=== PATIENT | male | born 1940 | race Caucasian/White ===

== ENCOUNTER 2022-12-31 12:46 | Emergency (ER) | payer MEDICARE, BC ==
[2022-12-31 13:53] LABS: BASOPHILS PERCENT AUTO 0.5 % (0.3-3.8); EOSINOPHILS ABSOLUTE AUTO 0.2 x10-3/uL (0.0-0.6); EOSINOPHILS PERCENT AUTO 2.5 % (0.1-6.8); HEMATOCRIT 43.9 % (38.3-50.1); HEMOGLOBIN 15.7 g/dL (12.9-17.7); LYMPHOCYTES ABSOLUTE AUTO 1.3 x10-3/uL (0.5-4.5); LYMPHOCYTES PERCENT AUTO 16.8 % (15.8-45.3); MEAN CORPUSCULAR HEMOGLOBIN 33.8 pg (27.0-33.3); MEAN CORPUSCULAR HGB CONC 35.8 g/dL (28.7-35.3); MEAN CORPUSCULAR VOLUME 94.4 fL (80.8-98.7); MEAN PLATELET VOLUME 8.7 fL (6.7-11.0); MONOCYTES ABSOLUTE AUTO 0.6 x10-3/uL (0.0-1.2); MONOCYTES PERCENT AUTO 7.7 % (5.5-15.2); NEUTROPHILS ABSOLUTE AUTO 5.5 x10-3/uL (1.7-6.9); NEUTROPHILS PERCENT AUTO 72.5 % (40.3-71.8); PLATELET COUNT,PLT 230 x10(3)uL (117-477); RED BLOOD CELL COUNT 4.65 x10(6)uL (3.90-5.90); RED CELL DISTRIBUTION WIDTH 14.6 % (12.4-15.0); WHITE BLOOD CELL COUNT,WBC 7.6 x10-3/uL (3.2-10.1)
[2022-12-31 13:55] LABS: BLOOD UREA NITROGEN,BUN 25 mg/dL (7-18); BUN/CREATININE RATIO 19.2 (9-20); CALCIUM 8.9 mg/dL (8.6-10.2); CARBON DIOXIDE,CO2 31 mmol/L (21-32); CHLORIDE,CL 101 mmol/L (100-110); CREATININE 1.3 mg/dL (0.70-1.30); ESTIMATED GFR 55 mL/min (>60); GLUCOSE RANDOM 129 mg/dL (80-116); POTASSIUM,K 3.6 mmol/L (3.5-5.3); SODIUM,NA 140 mmol/L (135-145)
[2022-12-31 14:00] LABS: A/G RATIO 0.8; ALANINE AMINOTRANSFERASE,ALT 24 U/L (12-36); ALBUMIN 3.7 g/dL (3.2-4.6); ALKALINE PHOSPHATASE 62 IU/L (56-112); ASPARTATE AMNIOTRANSFERASE,AST 21 IU/L (5-25); BILIRUBIN TOTAL 0.6 mg/dL (0.1-1.3); PROTEIN TOTAL,TP 8.5 g/dL (6.0-8.0)
[2022-12-31 14:06] LABS: TROPONIN I 21.5 pg/mL (4.0-60.3)
[2022-12-31 15:16] LABS: BILIRUBIN,URINE NEGATIVE (NEGATIVE); GLUCOSE,URINE NORMAL (NORMAL); KETONES,URINE NEGATIVE (NEGATIVE); LEUKOCYTE ESTERASE,URINE NEGATIVE (NEGATIVE); NITRITE,URINE NEGATIVE (NEGATIVE); OCCULT BLOOD,URINE MODERATE (NEGATIVE); PROTEIN,URINE NEGATIVE (NEGATIVE); UROBILINOGEN,URINE NORMAL (NEGATIVE)
[2022-12-31 15:20] LABS: APPEARANCE,URINE CLEAR (CLEAR); BACTERIA,URINE RARE (NS); COLOR,URINE YELLOW (YELLOW); RBC,URINE 0-5 (0-5); SQUAMOUS EPITHELIAL CELLS,UR OCCASIONAL (NS,R,O); WBC,URINE 0-5 (0-5)
== END 2022-12-31 15:50 | disposition home or self-care (01) ==
LOC: FB.ED 12:46
DX: S01.81XA Laceration without foreign body of other part of head, initial encounter (principal); S51.812A Laceration without foreign body of left forearm, initial encounter; J20.9 Acute bronchitis, unspecified; E86.0 Dehydration; R79.82 Elevated C-reactive protein (CRP); R77.9 Abnormality of plasma protein, unspecified; E78.5 Hyperlipidemia, unspecified; R79.89 Other specified abnormal findings of blood chemistry; Z20.822 Contact with and (suspected) exposure to COVID-19; Z79.899 Other long term (current) drug therapy; W18.30XA Fall on same level, unspecified, initial encounter
CPT/HCPCS: 36415; 71046; 80053; 81001; 83880; 84484; 85025; 86140; 93005; 99285; U0002

== ENCOUNTER 2023-01-05 03:01 | Emergency (ER) | payer MEDICARE, BC ==
[2023-01-05] MEDS ORDERED: Acetaminophen 500 MG Tab PO ONE (04:08)
[2023-01-05] MEDS ORDERED: Ibuprofen 600 MG Tab PO ONE (04:08)
[2023-01-05 04:15] LABS: BLOOD UREA NITROGEN,BUN 19 mg/dL (7-18); BUN/CREATININE RATIO 21.1 (9-20); CALCIUM 8.6 mg/dL (8.6-10.2); CARBON DIOXIDE,CO2 31 mmol/L (21-32); CHLORIDE,CL 104 mmol/L (100-110); CREATININE 0.9 mg/dL (0.70-1.30); EST CRCL DRUG DOSING (CG) 55.38 mL/min; ESTIMATED GFR 85 mL/min (>60); GLUCOSE RANDOM 98 mg/dL (80-116); POTASSIUM,K 3.3 mmol/L (3.5-5.3); SODIUM,NA 142 mmol/L (135-145)
[2023-01-05 04:20] LABS: INR 1.09 (1.00-1.24); PROTHROMBIN TIME 11.2 sec (9.0-11.1)
[2023-01-05 04:21] LABS: A/G RATIO 0.7; ALANINE AMINOTRANSFERASE,ALT 18 U/L (12-36); ALBUMIN 3.1 g/dL (3.2-4.6); ALKALINE PHOSPHATASE 54 IU/L (56-112); ASPARTATE AMNIOTRANSFERASE,AST 20 IU/L (5-25); BILIRUBIN TOTAL 0.6 mg/dL (0.1-1.3); CREATINE KINASE,CK 67 IU/L (60-160); PROTEIN TOTAL,TP 7.9 g/dL (6.0-8.0)
[2023-01-05 04:22] LABS: PTT,PARTIAL THROMBOPLSTIN TIME 30.5 SECONDS (24.4-33.2)
[2023-01-05 04:32] LABS: BILIRUBIN,URINE NEGATIVE (NEGATIVE); GLUCOSE,URINE NORMAL (NORMAL); KETONES,URINE NEGATIVE (NEGATIVE); LEUKOCYTE ESTERASE,URINE NEGATIVE (NEGATIVE); NITRITE,URINE NEGATIVE (NEGATIVE); OCCULT BLOOD,URINE NEGATIVE (NEGATIVE); PROTEIN,URINE NEGATIVE (NEGATIVE); UROBILINOGEN,URINE NORMAL (NEGATIVE)
[2023-01-05 04:34] LABS: APPEARANCE,URINE CLEAR (CLEAR); BACTERIA,URINE RARE (NS); COLOR,URINE YELLOW (YELLOW); RBC,URINE 0-5 (0-5); SQUAMOUS EPITHELIAL CELLS,UR OCCASIONAL (NS,R,O); WBC,URINE 0-5 (0-5)
[2023-01-05 04:41] LABS: BASOPHILS PERCENT AUTO 0.7 % (0.3-3.8); EOSINOPHILS ABSOLUTE AUTO 0.2 x10-3/uL (0.0-0.6); EOSINOPHILS PERCENT AUTO 3.2 % (0.1-6.8); HEMATOCRIT 39.6 % (38.3-50.1); HEMOGLOBIN 13.9 g/dL (12.9-17.7); LYMPHOCYTES ABSOLUTE AUTO 1.2 x10-3/uL (0.5-4.5); MEAN CORPUSCULAR HEMOGLOBIN 33.4 pg (27.0-33.3); MEAN CORPUSCULAR HGB CONC 35.2 g/dL (28.7-35.3); MEAN CORPUSCULAR VOLUME 94.7 fL (80.8-98.7); MEAN PLATELET VOLUME 8.5 fL (6.7-11.0); MONOCYTES ABSOLUTE AUTO 0.5 x10-3/uL (0.0-1.2); MONOCYTES PERCENT AUTO 8.7 % (5.5-15.2); NEUTROPHILS ABSOLUTE AUTO 4.3 x10-3/uL (1.7-6.9); NEUTROPHILS PERCENT AUTO 68.4 % (40.3-71.8); PLATELET COUNT,PLT 253 x10(3)uL (117-477); RED BLOOD CELL COUNT 4.18 x10(6)uL (3.90-5.90); RED CELL DISTRIBUTION WIDTH 14.3 % (12.4-15.0); WHITE BLOOD CELL COUNT,WBC 6.3 x10-3/uL (3.2-10.1)
[2023-01-05] MEDS ORDERED: Potassium Chloride 20 MEQ Tab.ER PO ONE (05:56)
== END 2023-01-05 07:20 | disposition home or self-care (01) ==
LOC: FB.ED 03:01
DX: T14.8XXA Other injury of unspecified body region, initial encounter (principal); E87.6 Hypokalemia; M79.10 Myalgia, unspecified site; I10 Essential (primary) hypertension; Z79.899 Other long term (current) drug therapy; W01.0XXA Fall on same level from slipping, tripping and stumbling without subsequent striking against object, initial encounter
CPT/HCPCS: 36415; 72040; 73502; 80053; 81001; 82550; 85025; 85610; 85730; 93005; 99284; A9270

== ENCOUNTER 2023-01-05 09:24 | Emergency (ER) | payer MEDICARE, BC ==
[2023-01-05] MEDS ORDERED: Ketorolac 30 MG/ML SDV IM ONE (10:28)
== END 2023-01-05 13:57 ==
LOC: FB.ED 09:24
DX: S72.115A Nondisplaced fracture of greater trochanter of left femur, initial encounter for closed fracture (principal); I10 Essential (primary) hypertension; E78.00 Pure hypercholesterolemia, unspecified; Z87.891 Personal history of nicotine dependence; Z79.899 Other long term (current) drug therapy; W18.30XA Fall on same level, unspecified, initial encounter; Y92.129 Unspecified place in nursing home as the place of occurrence of the external cause
CPT/HCPCS: 73562; 73700; 96372; 99284; J1885

== ENCOUNTER 2023-01-14 09:14 | Inpatient (IN) | payer MEDICARE, BC ==
[2023-01-14] MEDS ORDERED: Polyvinyl Alcohol 1.4% Ophth Soln 15 ML Bottle EYEBOTH PRN (16:01)
[2023-01-14] MEDS ORDERED: QUEtiapine 25 MG Tab PO PRN (16:01)
[2023-01-14] MEDS: Enoxaparin 30 MG/0.3 ML Syringe SUBCUT SCH (21:30)
[2023-01-14] MEDS: Donepezil 10 MG Tab PO SCH (21:30)
[2023-01-14] MEDS: atorvaSTATin 10 MG Tab PO SCH (21:30)
[2023-01-14] MEDS: Mirtazapine 15 MG Tab PO SCH (21:31)
[2023-01-14] MEDS: Melatonin 3 MG Tab PO SCH (21:31)
[2023-01-14] MEDS: Sertraline 25 MG Tab PO SCH (21:32)
[2023-01-14] MEDS: Timolol Maleate 0.5% Ophth Soln 5 ML Bottle EYEBOTH SCH (21:39)
[2023-01-15] MEDS: amLODIPine 5 MG Tab PO SCH (08:17)
[2023-01-15] MEDS: Enoxaparin 30 MG/0.3 ML Syringe SUBCUT SCH ×2 (08:17→20:30)
[2023-01-15] MEDS: Timolol Maleate 0.5% Ophth Soln 5 ML Bottle EYEBOTH SCH ×2 (08:18→21:41)
[2023-01-15] MEDS: Acetaminophen 325 MG Tab PO SCH ×2 (11:05→21:42)
[2023-01-15] MEDS: Tamsulosin 0.4 MG Cap.ER PO SCH (11:06)
[2023-01-15] MEDS ORDERED: Ondansetron 4 MG Tab.DIS PO PRN (13:40)
[2023-01-15] MEDS: guaiFENesin 600 MG Tab.ER PO SCH ×2 (13:45→20:29)
[2023-01-15] MEDS: Melatonin 3 MG Tab PO SCH (20:29)
[2023-01-15] MEDS: Donepezil 10 MG Tab PO SCH (20:29)
[2023-01-15] MEDS: atorvaSTATin 10 MG Tab PO SCH (20:29)
[2023-01-15] MEDS: Acetaminophen 325 MG Tab PO PRN (20:52)
[2023-01-15] MEDS: Sertraline 25 MG Tab PO SCH (21:41)
[2023-01-15] MEDS: Mirtazapine 15 MG Tab PO SCH (21:41)
[2023-01-15] MEDS ORDERED: Albuterol/Ipratropium 3.0-0.5 MG/3 ML Neb Soln NEB PRN (21:57)
[2023-01-15] MEDS ORDERED: Morphine 2 MG/ML SYRINGE IM ONE (21:59)
[2023-01-16] MEDS: Timolol Maleate 0.5% Ophth Soln 5 ML Bottle EYEBOTH SCH ×2 (08:09→20:30)
[2023-01-16] MEDS: Enoxaparin 30 MG/0.3 ML Syringe SUBCUT SCH ×2 (08:10→20:30)
[2023-01-16] MEDS: amLODIPine 5 MG Tab PO SCH (08:14)
[2023-01-16] MEDS: guaiFENesin 600 MG Tab.ER PO SCH ×2 (08:14→20:28)
[2023-01-16] MEDS: Tamsulosin 0.4 MG Cap.ER PO SCH (08:15)
[2023-01-16] MEDS: Acetaminophen 325 MG Tab PO SCH ×2 (08:15→20:28)
[2023-01-16] MEDS: Albuterol/Ipratropium 3.0-0.5 MG/3 ML Neb Soln NEB SCH ×4 (10:10→20:29)
[2023-01-16] MEDS: Mirtazapine 15 MG Tab PO SCH (20:28)
[2023-01-16] MEDS: Sertraline 25 MG Tab PO SCH (20:29)
[2023-01-16] MEDS: Melatonin 3 MG Tab PO SCH (20:29)
[2023-01-16] MEDS: Donepezil 10 MG Tab PO SCH (20:29)
[2023-01-16] MEDS: atorvaSTATin 10 MG Tab PO SCH (20:30)
[2023-01-17] MEDS: Albuterol/Ipratropium 3.0-0.5 MG/3 ML Neb Soln NEB SCH (06:09)
[2023-01-17 06:22] LABS: BASOPHILS ABSOLUTE AUTO 0.1 x10-3/uL (0.0-0.3); BASOPHILS PERCENT AUTO 0.9 % (0.3-3.8); EOSINOPHILS ABSOLUTE AUTO 0.2 x10-3/uL (0.0-0.6); EOSINOPHILS PERCENT AUTO 2.6 % (0.1-6.8); HEMATOCRIT 36.4 % (38.3-50.1); HEMOGLOBIN 12.3 g/dL (12.9-17.7); LYMPHOCYTES ABSOLUTE AUTO 1.5 x10-3/uL (0.5-4.5); LYMPHOCYTES PERCENT AUTO 19.3 % (15.8-45.3); MEAN CORPUSCULAR HEMOGLOBIN 31.7 pg (27.0-33.3); MEAN CORPUSCULAR HGB CONC 33.7 g/dL (28.7-35.3); MEAN CORPUSCULAR VOLUME 93.9 fL (80.8-98.7); MONOCYTES ABSOLUTE AUTO 0.6 x10-3/uL (0.0-1.2); MONOCYTES PERCENT AUTO 7.9 % (5.5-15.2); NEUTROPHILS ABSOLUTE AUTO 5.4 x10-3/uL (1.7-6.9); NEUTROPHILS PERCENT AUTO 69.3 % (40.3-71.8); PLATELET COUNT,PLT 331 x10(3)uL (117-477); RED BLOOD CELL COUNT 3.88 x10(6)uL (3.90-5.90); RED CELL DISTRIBUTION WIDTH 14.1 % (12.4-15.0); WHITE BLOOD CELL COUNT,WBC 7.8 x10-3/uL (3.2-10.1)
[2023-01-17] MEDS: guaiFENesin 600 MG Tab.ER PO SCH ×2 (08:29→20:54)
[2023-01-17] MEDS: Tamsulosin 0.4 MG Cap.ER PO SCH (08:29)
[2023-01-17] MEDS: Enoxaparin 30 MG/0.3 ML Syringe SUBCUT SCH ×2 (08:29→20:53)
[2023-01-17] MEDS: amLODIPine 5 MG Tab PO SCH (08:30)
[2023-01-17] MEDS: Timolol Maleate 0.5% Ophth Soln 5 ML Bottle EYEBOTH SCH ×2 (08:31→20:55)
[2023-01-17] MEDS: Acetaminophen 325 MG Tab PO SCH ×2 (08:37→20:56)
[2023-01-17] MEDS: Donepezil 10 MG Tab PO SCH (20:52)
[2023-01-17] MEDS: atorvaSTATin 10 MG Tab PO SCH (20:53)
[2023-01-17] MEDS: Melatonin 3 MG Tab PO SCH (20:53)
[2023-01-17] MEDS: Mirtazapine 15 MG Tab PO SCH (20:55)
[2023-01-17] MEDS: Sertraline 25 MG Tab PO SCH (20:57)
[2023-01-18] MEDS: Timolol Maleate 0.5% Ophth Soln 5 ML Bottle EYEBOTH SCH ×2 (09:21→20:19)
[2023-01-18] MEDS: Enoxaparin 30 MG/0.3 ML Syringe SUBCUT SCH ×2 (09:21→20:21)
[2023-01-18] MEDS: Acetaminophen 325 MG Tab PO SCH ×2 (09:21→20:19)
[2023-01-18] MEDS: amLODIPine 5 MG Tab PO SCH (09:21)
[2023-01-18] MEDS: guaiFENesin 600 MG Tab.ER PO SCH ×2 (09:22→20:21)
[2023-01-18] MEDS: Tamsulosin 0.4 MG Cap.ER PO SCH (09:22)
[2023-01-18] MEDS: Mirtazapine 15 MG Tab PO SCH (20:19)
[2023-01-18] MEDS: Melatonin 3 MG Tab PO SCH (20:20)
[2023-01-18] MEDS: atorvaSTATin 10 MG Tab PO SCH (20:20)
[2023-01-18] MEDS: Sertraline 25 MG Tab PO SCH (20:21)
[2023-01-18] MEDS: Donepezil 10 MG Tab PO SCH (20:21)
[2023-01-19] MEDS: Timolol Maleate 0.5% Ophth Soln 5 ML Bottle EYEBOTH SCH ×2 (09:05→20:02)
[2023-01-19] MEDS: guaiFENesin 600 MG Tab.ER PO SCH ×2 (09:06→20:03)
[2023-01-19] MEDS: Tamsulosin 0.4 MG Cap.ER PO SCH (09:06)
[2023-01-19] MEDS: Enoxaparin 30 MG/0.3 ML Syringe SUBCUT SCH ×2 (09:06→20:01)
[2023-01-19] MEDS: amLODIPine 5 MG Tab PO SCH (09:06)
[2023-01-19] MEDS: Acetaminophen 325 MG Tab PO SCH ×2 (09:07→20:02)
[2023-01-19] MEDS: Melatonin 3 MG Tab PO SCH (20:03)
[2023-01-19] MEDS: Sertraline 25 MG Tab PO SCH (20:03)
[2023-01-19] MEDS: Donepezil 10 MG Tab PO SCH (20:03)
[2023-01-19] MEDS: Mirtazapine 15 MG Tab PO SCH (20:03)
[2023-01-19] MEDS: atorvaSTATin 10 MG Tab PO SCH (20:03)
[2023-01-20] MEDS: Enoxaparin 30 MG/0.3 ML Syringe SUBCUT SCH ×2 (08:06→20:30)
[2023-01-20] MEDS: Tamsulosin 0.4 MG Cap.ER PO SCH (08:06)
[2023-01-20] MEDS: guaiFENesin 600 MG Tab.ER PO SCH (08:06)
[2023-01-20] MEDS: amLODIPine 5 MG Tab PO SCH (08:06)
[2023-01-20] MEDS: Timolol Maleate 0.5% Ophth Soln 5 ML Bottle EYEBOTH SCH ×2 (08:07→20:31)
[2023-01-20] MEDS: Acetaminophen 325 MG Tab PO SCH ×2 (08:15→20:32)
[2023-01-20] MEDS ORDERED: FLU (Fluad Quad) 2023-24(65UP)/MF59C/PF 60 MCG/0.5 ML Syringe IM ONE (09:00)
[2023-01-20] MEDS: atorvaSTATin 10 MG Tab PO SCH (20:29)
[2023-01-20] MEDS: Donepezil 10 MG Tab PO SCH (20:29)
[2023-01-20] MEDS: Mirtazapine 15 MG Tab PO SCH (20:30)
[2023-01-20] MEDS: Finasteride 5 MG Tab PO SCH (20:30)
[2023-01-20] MEDS: Melatonin 3 MG Tab PO SCH (20:30)
[2023-01-20] MEDS: Sertraline 25 MG Tab PO SCH (20:33)
[2023-01-21] MEDS: Enoxaparin 30 MG/0.3 ML Syringe SUBCUT SCH ×2 (09:31→20:41)
[2023-01-21] MEDS: Acetaminophen 325 MG Tab PO SCH ×2 (09:31→20:39)
[2023-01-21] MEDS: Timolol Maleate 0.5% Ophth Soln 5 ML Bottle EYEBOTH SCH ×2 (09:32→20:40)
[2023-01-21] MEDS: amLODIPine 5 MG Tab PO SCH (09:32)
[2023-01-21] MEDS: Tamsulosin 0.4 MG Cap.ER PO SCH (09:32)
[2023-01-21] MEDS: valACYclovir 1,000 MG Tab PO SCH ×2 (14:07→20:39)
[2023-01-21] MEDS: Sertraline 25 MG Tab PO SCH (20:38)
[2023-01-21] MEDS: Melatonin 3 MG Tab PO SCH (20:41)
[2023-01-21] MEDS: atorvaSTATin 10 MG Tab PO SCH (20:41)
[2023-01-21] MEDS: Finasteride 5 MG Tab PO SCH (20:41)
[2023-01-21] MEDS: Donepezil 10 MG Tab PO SCH (20:42)
[2023-01-22] MEDS: Tamsulosin 0.4 MG Cap.ER PO SCH (08:39)
[2023-01-22] MEDS: Enoxaparin 30 MG/0.3 ML Syringe SUBCUT SCH ×2 (08:40→20:35)
[2023-01-22] MEDS: Acetaminophen 325 MG Tab PO SCH ×2 (08:40→20:36)
[2023-01-22] MEDS: Timolol Maleate 0.5% Ophth Soln 5 ML Bottle EYEBOTH SCH ×2 (08:40→20:36)
[2023-01-22] MEDS: valACYclovir 1,000 MG Tab PO SCH ×3 (08:41→20:37)
[2023-01-22] MEDS: amLODIPine 5 MG Tab PO SCH (08:42)
[2023-01-22] MEDS: Donepezil 10 MG Tab PO SCH (20:35)
[2023-01-22] MEDS: atorvaSTATin 10 MG Tab PO SCH (20:35)
[2023-01-22] MEDS: Melatonin 3 MG Tab PO SCH (20:36)
[2023-01-22] MEDS: Finasteride 5 MG Tab PO SCH (20:36)
[2023-01-22] MEDS: Sertraline 25 MG Tab PO SCH (20:37)
[2023-01-23] MEDS: Acetaminophen 325 MG Tab PO PRN (04:45)
[2023-01-23] MEDS: Tamsulosin 0.4 MG Cap.ER PO SCH (09:01)
[2023-01-23] MEDS: valACYclovir 1,000 MG Tab PO SCH ×3 (09:01→20:02)
[2023-01-23] MEDS: Acetaminophen 325 MG Tab PO SCH ×2 (09:01→20:02)
[2023-01-23] MEDS: amLODIPine 5 MG Tab PO SCH (09:01)
[2023-01-23] MEDS: Timolol Maleate 0.5% Ophth Soln 5 ML Bottle EYEBOTH SCH ×2 (09:01→20:04)
[2023-01-23] MEDS: Enoxaparin 30 MG/0.3 ML Syringe SUBCUT SCH ×2 (09:02→20:03)
[2023-01-23] MEDS: Finasteride 5 MG Tab PO SCH (20:03)
[2023-01-23] MEDS: Donepezil 10 MG Tab PO SCH (20:03)
[2023-01-23] MEDS: atorvaSTATin 10 MG Tab PO SCH (20:03)
[2023-01-23] MEDS: Sertraline 25 MG Tab PO SCH (20:03)
[2023-01-23] MEDS: Melatonin 3 MG Tab PO SCH (20:03)
[2023-01-24 06:54] LABS: BASOPHILS PERCENT AUTO 0.6 % (0.3-3.8); EOSINOPHILS ABSOLUTE AUTO 0.1 x10-3/uL (0.0-0.6); EOSINOPHILS PERCENT AUTO 1.2 % (0.1-6.8); HEMATOCRIT 33.2 % (38.3-50.1); HEMOGLOBIN 11.5 g/dL (12.9-17.7); LYMPHOCYTES ABSOLUTE AUTO 1.2 x10-3/uL (0.5-4.5); LYMPHOCYTES PERCENT AUTO 15.9 % (15.8-45.3); MEAN CORPUSCULAR HEMOGLOBIN 33.2 pg (27.0-33.3); MEAN CORPUSCULAR HGB CONC 34.6 g/dL (28.7-35.3); MEAN CORPUSCULAR VOLUME 96.1 fL (80.8-98.7); MEAN PLATELET VOLUME 7.5 fL (6.7-11.0); MONOCYTES ABSOLUTE AUTO 0.7 x10-3/uL (0.0-1.2); MONOCYTES PERCENT AUTO 9.4 % (5.5-15.2); NEUTROPHILS ABSOLUTE AUTO 5.6 x10-3/uL (1.7-6.9); NEUTROPHILS PERCENT AUTO 72.9 % (40.3-71.8); PLATELET COUNT,PLT 352 x10(3)uL (117-477); RED BLOOD CELL COUNT 3.46 x10(6)uL (3.90-5.90); RED CELL DISTRIBUTION WIDTH 14.4 % (12.4-15.0); WHITE BLOOD CELL COUNT,WBC 7.7 x10-3/uL (3.2-10.1)
[2023-01-24] MEDS: Tamsulosin 0.4 MG Cap.ER PO SCH (08:50)
[2023-01-24] MEDS: Timolol Maleate 0.5% Ophth Soln 5 ML Bottle EYEBOTH SCH ×2 (08:50→20:41)
[2023-01-24] MEDS: amLODIPine 5 MG Tab PO SCH (08:50)
[2023-01-24] MEDS: Acetaminophen 325 MG Tab PO SCH ×2 (08:51→20:41)
[2023-01-24] MEDS: valACYclovir 1,000 MG Tab PO SCH ×3 (08:51→20:41)
[2023-01-24] MEDS: Enoxaparin 30 MG/0.3 ML Syringe SUBCUT SCH ×2 (12:52→20:40)
[2023-01-24] MEDS: Donepezil 10 MG Tab PO SCH (20:40)
[2023-01-24] MEDS: Melatonin 3 MG Tab PO SCH (20:40)
[2023-01-24] MEDS: atorvaSTATin 10 MG Tab PO SCH (20:40)
[2023-01-24] MEDS: Finasteride 5 MG Tab PO SCH (20:41)
[2023-01-24] MEDS: Sertraline 25 MG Tab PO SCH (20:41)
[2023-01-25] MEDS: amLODIPine 5 MG Tab PO SCH (08:43)
[2023-01-25] MEDS: Enoxaparin 30 MG/0.3 ML Syringe SUBCUT SCH ×2 (08:43→20:55)
[2023-01-25] MEDS: Timolol Maleate 0.5% Ophth Soln 5 ML Bottle EYEBOTH SCH ×2 (08:43→20:54)
[2023-01-25] MEDS: Tamsulosin 0.4 MG Cap.ER PO SCH (08:43)
[2023-01-25] MEDS: valACYclovir 1,000 MG Tab PO SCH ×3 (08:44→20:58)
[2023-01-25] MEDS: Acetaminophen 325 MG Tab PO SCH ×2 (08:44→20:57)
[2023-01-25] MEDS: Acetaminophen 325 MG Tab PO PRN (18:25)
[2023-01-25] MEDS: Finasteride 5 MG Tab PO SCH (20:56)
[2023-01-25] MEDS: Melatonin 3 MG Tab PO SCH (20:56)
[2023-01-25] MEDS: Donepezil 10 MG Tab PO SCH (20:56)
[2023-01-25] MEDS: atorvaSTATin 10 MG Tab PO SCH (20:56)
[2023-01-25] MEDS: Sertraline 25 MG Tab PO SCH (20:58)
[2023-01-26] MEDS: Timolol Maleate 0.5% Ophth Soln 5 ML Bottle EYEBOTH SCH ×2 (09:04→20:30)
[2023-01-26] MEDS: Acetaminophen 325 MG Tab PO SCH ×2 (09:05→20:30)
[2023-01-26] MEDS: Tamsulosin 0.4 MG Cap.ER PO SCH (09:05)
[2023-01-26] MEDS: Enoxaparin 30 MG/0.3 ML Syringe SUBCUT SCH ×2 (09:05→20:31)
[2023-01-26] MEDS: amLODIPine 5 MG Tab PO SCH (09:06)
[2023-01-26] MEDS: valACYclovir 1,000 MG Tab PO SCH ×3 (09:07→20:30)
[2023-01-26] MEDS: Donepezil 10 MG Tab PO SCH (20:30)
[2023-01-26] MEDS: Finasteride 5 MG Tab PO SCH (20:30)
[2023-01-26] MEDS: Sertraline 25 MG Tab PO SCH (20:30)
[2023-01-26] MEDS: Melatonin 3 MG Tab PO SCH (20:30)
[2023-01-26] MEDS: atorvaSTATin 10 MG Tab PO SCH (20:31)
[2023-01-27] MEDS: Acetaminophen 325 MG Tab PO SCH ×2 (09:33→22:15)
[2023-01-27] MEDS: Tamsulosin 0.4 MG Cap.ER PO SCH (09:33)
[2023-01-27] MEDS: valACYclovir 1,000 MG Tab PO SCH ×3 (09:33→22:16)
[2023-01-27] MEDS: Timolol Maleate 0.5% Ophth Soln 5 ML Bottle EYEBOTH SCH ×2 (09:34→22:14)
[2023-01-27] MEDS: amLODIPine 5 MG Tab PO SCH (09:34)
[2023-01-27] MEDS: Enoxaparin 30 MG/0.3 ML Syringe SUBCUT SCH ×2 (09:34→22:13)
[2023-01-27] MEDS: Donepezil 10 MG Tab PO SCH (22:13)
[2023-01-27] MEDS: atorvaSTATin 10 MG Tab PO SCH (22:13)
[2023-01-27] MEDS: Melatonin 3 MG Tab PO SCH (22:14)
[2023-01-27] MEDS: Finasteride 5 MG Tab PO SCH (22:14)
[2023-01-27] MEDS: Sertraline 25 MG Tab PO SCH (22:17)
[2023-01-28] MEDS: Timolol Maleate 0.5% Ophth Soln 5 ML Bottle EYEBOTH SCH (08:23)
[2023-01-28] MEDS: Tamsulosin 0.4 MG Cap.ER PO SCH (08:23)
[2023-01-28] MEDS: amLODIPine 5 MG Tab PO SCH (08:23)
[2023-01-28] MEDS: Enoxaparin 30 MG/0.3 ML Syringe SUBCUT SCH (08:23)
[2023-01-28] MEDS: valACYclovir 1,000 MG Tab PO SCH (08:24)
[2023-01-28] MEDS: Acetaminophen 325 MG Tab PO SCH (08:24)
== END 2023-01-28 09:20 | disposition home health service (06) | DRG 560 ==
LOC: FB.MS 13:24
PROVIDERS: ADMIT Student in an Organized Health Care Education/Training Program; ATTEND Family Medicine
PROC: 0T9B70Z Drainage of Bladder with Drainage Device, Via Natural or Artificial Opening (ICD-10-PCS; principal; 2023-01-28)
DX: Z47.1 Aftercare following joint replacement surgery (principal); F01.B3 Vascular dementia, moderate, with mood disturbance; F02.B3 Dementia in other diseases classified elsewhere, moderate, with mood disturbance; N13.8 Other obstructive and reflux uropathy; I10 Essential (primary) hypertension; Z51.5 Encounter for palliative care; F32.A Depression, unspecified; R29.6 Repeated falls; E78.00 Pure hypercholesterolemia, unspecified; G30.9 Alzheimer's disease, unspecified; M81.0 Age-related osteoporosis without current pathological fracture; Z96.642 Presence of left artificial hip joint; N40.1 Benign prostatic hyperplasia with lower urinary tract symptoms; I71.43 Infrarenal abdominal aortic aneurysm, without rupture; K22.70 Barrett's esophagus without dysplasia; B02.9 Zoster without complications; Z98.49 Cataract extraction status, unspecified eye; Z87.891 Personal history of nicotine dependence; Z79.899 Other long term (current) drug therapy; Z79.01 Long term (current) use of anticoagulants; Z98.890 Other specified postprocedural states; Z85.820 Personal history of malignant melanoma of skin
CPT/HCPCS: 36415; 51701; 51702; 51703; 51798; 71046; 85025; 90694; 94640; 94762; 97161-GP; 97165-GO; 97530-GO; 97530-GP; 97535-GO; 99306; 99310; 99315; A9270-GY; C1758; G0008; J1650; J2270; J7620; Q0162

== ENCOUNTER 2023-02-16 03:04 | Emergency (ER) | payer MEDICARE, BC ==
[2023-02-16 03:57] LABS: HEMATOCRIT 34.2 % (38.3-50.1); HEMOGLOBIN 12.2 g/dL (12.9-17.7); MEAN CORPUSCULAR HGB CONC 35.6 g/dL (28.7-35.3); MEAN CORPUSCULAR VOLUME 98.3 fL (80.8-98.7); MEAN PLATELET VOLUME 7.8 fL (6.7-11.0); PLATELET COUNT,PLT 203 x10(3)uL (117-477); RED BLOOD CELL COUNT 3.48 x10(6)uL (3.90-5.90); RED CELL DISTRIBUTION WIDTH 15.7 % (12.4-15.0); WHITE BLOOD CELL COUNT,WBC 9.6 x10-3/uL (3.2-10.1)
[2023-02-16 04:06] LABS: BILIRUBIN,URINE NEGATIVE (NEGATIVE); GLUCOSE,URINE NORMAL (NORMAL); KETONES,URINE NEGATIVE (NEGATIVE); LEUKOCYTE ESTERASE,URINE LARGE (NEGATIVE); NITRITE,URINE POSITIVE (NEGATIVE); OCCULT BLOOD,URINE LARGE (NEGATIVE); PROTEIN,URINE TRACE mg/dL (NEGATIVE); UROBILINOGEN,URINE NORMAL (NEGATIVE)
[2023-02-16 04:07] LABS: A/G RATIO 0.6; ALANINE AMINOTRANSFERASE,ALT 25 U/L (12-36); ALBUMIN 2.7 g/dL (3.2-4.6); ALKALINE PHOSPHATASE 77 IU/L (56-112); ASPARTATE AMNIOTRANSFERASE,AST 27 IU/L (5-25); BILIRUBIN TOTAL 0.5 mg/dL (0.1-1.3); BLOOD UREA NITROGEN,BUN 40 mg/dL (7-18); BUN/CREATININE RATIO 36.4 (9-20); CALCIUM 8.8 mg/dL (8.6-10.2); CARBON DIOXIDE,CO2 34 mmol/L (21-32); CHLORIDE,CL 102 mmol/L (100-110); CREATININE 1.1 mg/dL (0.70-1.30); EST CRCL DRUG DOSING (CG) 46.17 mL/min; ESTIMATED GFR 67 mL/min (>60); GLUCOSE RANDOM 102 mg/dL (80-116); PROTEIN TOTAL,TP 7.3 g/dL (6.0-8.0); SODIUM,NA 140 mmol/L (135-145)
[2023-02-16 04:12] LABS: POTASSIUM,K 2.8 mmol/L (3.5-5.3)
[2023-02-16 04:12] LABS: APPEARANCE,URINE CLOUDY (CLEAR); COLOR,URINE YELLOW (YELLOW); RBC,URINE 0-5 (0-5)
[2023-02-16 04:13] LABS: BACTERIA,URINE MANY (NS); SQUAMOUS EPITHELIAL CELLS,UR OCCASIONAL (NS,R,O)
[2023-02-16] MEDS ORDERED: Sulfamethoxazole/Trimethoprim 800-160 MG Tab PO STA (04:15)
[2023-02-16] MEDS ORDERED: Potassium Chloride 20 MEQ Tab.ER PO ONE (04:15)
[2023-02-16 04:49] LABS: BAND PERCENT MAN 2 % (0-6); EOSINOPHILS PERCENT MAN 1 % (0-5); LYMPHOCYTES PERCENT MAN 3 % (13-37); MONOCYTES PERCENT MAN 3 % (4-12); SEG NEUTROPHILS PERCENT MAN 91 % (46-82)
== END 2023-02-16 05:30 ==
LOC: FB.ED 03:04
DX: N39.0 Urinary tract infection, site not specified (principal); E87.6 Hypokalemia; E78.00 Pure hypercholesterolemia, unspecified; I10 Essential (primary) hypertension; Z79.899 Other long term (current) drug therapy
CPT/HCPCS: 36415; 51702; 80053; 81001; 85025; 87086; 87088; 87186; 99284; A9270-GY

== ENCOUNTER 2023-03-06 21:46 | Emergency (ER) | payer MEDICARE, BC ==
[2023-03-06 22:27] LABS: BASOPHILS PERCENT AUTO 0.2 % (0.3-3.8); EOSINOPHILS PERCENT AUTO 0.1 % (0.1-6.8); HEMATOCRIT 41.7 % (38.3-50.1); HEMOGLOBIN 14.3 g/dL (12.9-17.7); LYMPHOCYTES ABSOLUTE AUTO 1.1 x10-3/uL (0.5-4.5); MEAN CORPUSCULAR HEMOGLOBIN 31.3 pg (27.0-33.3); MEAN CORPUSCULAR HGB CONC 34.2 g/dL (28.7-35.3); MEAN CORPUSCULAR VOLUME 91.6 fL (80.8-98.7); MEAN PLATELET VOLUME 7.8 fL (6.7-11.0); MONOCYTES ABSOLUTE AUTO 0.5 x10-3/uL (0.0-1.2); MONOCYTES PERCENT AUTO 9.1 % (5.5-15.2); NEUTROPHILS ABSOLUTE AUTO 3.5 x10-3/uL (1.7-6.9); NEUTROPHILS PERCENT AUTO 69.6 % (40.3-71.8); PLATELET COUNT,PLT 227 x10(3)uL (117-477); RED BLOOD CELL COUNT 4.55 x10(6)uL (3.90-5.90); WHITE BLOOD CELL COUNT,WBC 5.1 x10-3/uL (3.2-10.1)
[2023-03-06 22:31] LABS: BLOOD UREA NITROGEN,BUN 23 mg/dL (7-18); BUN/CREATININE RATIO 25.6 (9-20); CALCIUM 8.9 mg/dL (8.6-10.2); CARBON DIOXIDE,CO2 33 mmol/L (21-32); CHLORIDE,CL 98 mmol/L (100-110); CREATININE 0.9 mg/dL (0.70-1.30); ESTIMATED GFR 85 mL/min (>60); GLUCOSE RANDOM 108 mg/dL (80-116); SODIUM,NA 135 mmol/L (135-145)
[2023-03-06 22:37] LABS: A/G RATIO 0.6; ALANINE AMINOTRANSFERASE,ALT 28 U/L (12-36); ALBUMIN 2.9 g/dL (3.2-4.6); ALKALINE PHOSPHATASE 59 IU/L (56-112); ASPARTATE AMNIOTRANSFERASE,AST 29 IU/L (5-25); BILIRUBIN TOTAL 0.4 mg/dL (0.1-1.3); PROTEIN TOTAL,TP 7.9 g/dL (6.0-8.0)
[2023-03-06 22:40] LABS: LACTIC ACID 1.2 mmol/L (0.4-2.0)
[2023-03-06] MEDS ORDERED: Sodium Chloride 0.9% 1,000 ML IV SCH (23:00)
[2023-03-06] MEDS ORDERED: Sodium Chloride 0.9% 10 ML Syringe FLUSH PRN (23:00)
[2023-03-06] MEDS ORDERED: Potassium Chloride 20 MEQ Tab.ER PO ONE (23:00)
[2023-03-06 23:04] LABS: BILIRUBIN,URINE NEGATIVE (NEGATIVE); GLUCOSE,URINE NORMAL (NORMAL); KETONES,URINE NEGATIVE (NEGATIVE); LEUKOCYTE ESTERASE,URINE MODERATE (NEGATIVE); NITRITE,URINE NEGATIVE (NEGATIVE); OCCULT BLOOD,URINE LARGE (NEGATIVE); PROTEIN,URINE 30 mg/dL (NEGATIVE); UROBILINOGEN,URINE NORMAL (NEGATIVE)
[2023-03-06 23:07] LABS: APPEARANCE,URINE CLEAR (CLEAR); BACTERIA,URINE FEW (NS); COLOR,URINE YELLOW (YELLOW); SQUAMOUS EPITHELIAL CELLS,UR OCCASIONAL (NS,R,O); WBC,URINE 0-5 (0-5)
[2023-03-07] MEDS ORDERED: cefTRIAXone 1 GM Vial IVPUSH STA
== END 2023-03-07 01:41 | disposition home or self-care (01) ==
LOC: FB.ED 21:46
DX: E86.0 Dehydration (principal); N39.0 Urinary tract infection, site not specified; E87.6 Hypokalemia; I10 Essential (primary) hypertension; E78.00 Pure hypercholesterolemia, unspecified; Z79.899 Other long term (current) drug therapy
CPT/HCPCS: 36415; 71045; 80053; 81001; 83605; 84484; 85025; 87086; 87088; 87186; 93005; 93010; 96361; 96374; 99284; 99285-25; A9270-GY; J0696; J7030

== ENCOUNTER 2024-05-08 03:27 | Inpatient (IN) | payer MEDICARE, BC ==
[2024-05-08] MEDS: Albuterol/Ipratropium 3.0-0.5 MG/3 ML Neb Soln NEB STA (03:33)
[2024-05-08] MEDS ORDERED: Naloxone 0.4 MG/ML SDV IVPUSH PRN (03:33)
[2024-05-08] MEDS: methylPREDNISolone Sodium Succinate 125 MG/2 ML SDV IVPUSH ONE (03:45)
[2024-05-08 03:48] LABS: HEMATOCRIT 45.7 % (38.3-50.1); HEMOGLOBIN 14.8 g/dL (12.9-17.7); MEAN CORPUSCULAR HEMOGLOBIN 29.3 pg (27.0-33.3); MEAN CORPUSCULAR HGB CONC 32.4 g/dL (28.7-35.3); MEAN CORPUSCULAR VOLUME 90.7 fL (80.8-98.7); MEAN PLATELET VOLUME 7.6 fL (6.7-11.0); PLATELET COUNT,PLT 374 x10(3)uL (117-477); RED BLOOD CELL COUNT 5.04 x10(6)uL (3.90-5.90); RED CELL DISTRIBUTION WIDTH 14.2 % (12.4-15.0); WHITE BLOOD CELL COUNT,WBC 15.5 x10-3/uL (3.2-10.1)
[2024-05-08 03:50] LABS: BASE EXCESS VENOUS,POC 1 mmol/L (-2 - 3+); PCO2 VENOUS,POC 45 mmHg (41-51); PH VENOUS,POC 7.38 pH Units (7.32-7.43)
[2024-05-08] MEDS: Morphine 4 MG/ML VIAL IVPUSH ONE (03:50)
[2024-05-08 03:52] LABS: BLOOD UREA NITROGEN,BUN 17 mg/dL (7-18); BUN/CREATININE RATIO 13.1 (9-20); CARBON DIOXIDE,CO2 29 mmol/L (21-32); CHLORIDE,CL 105 mmol/L (100-110); CREATININE 1.3 mg/dL (0.70-1.30); ESTIMATED GFR 55 mL/min (>60); GLUCOSE RANDOM 127 mg/dL (80-116); POTASSIUM,K 3.6 mmol/L (3.5-5.3); SODIUM,NA 144 mmol/L (135-145)
[2024-05-08 03:57] LABS: BILIRUBIN,URINE NEGATIVE (NEGATIVE); GLUCOSE,URINE NORMAL (NORMAL); KETONES,URINE NEGATIVE (NEGATIVE); LEUKOCYTE ESTERASE,URINE LARGE (NEGATIVE); NITRITE,URINE NEGATIVE (NEGATIVE); OCCULT BLOOD,URINE MODERATE (NEGATIVE); PROTEIN,URINE 30 mg/dL (NEGATIVE); UROBILINOGEN,URINE NORMAL (NEGATIVE)
[2024-05-08 03:58] LABS: A/G RATIO 0.6; ALANINE AMINOTRANSFERASE,ALT 16 U/L (12-36); ALBUMIN 3.2 g/dL (3.2-4.6); ALKALINE PHOSPHATASE 69 IU/L (56-112); ASPARTATE AMNIOTRANSFERASE,AST 20 IU/L (5-25); BILIRUBIN TOTAL 0.8 mg/dL (0.1-1.3); PROTEIN TOTAL,TP 8.8 g/dL (6.0-8.0)
[2024-05-08 03:58] LABS: APPEARANCE,URINE SLIGHTLY CLOUDY (CLEAR); COLOR,URINE YELLOW (YELLOW)
[2024-05-08] MEDS: Sodium Chloride 0.9% 1,000 ML IV SCH (04:00)
[2024-05-08 04:01] LABS: LACTIC ACID 1.5 mmol/L (0.4-2.0)
[2024-05-08 04:04] LABS: TROPONIN I 15.8 pg/mL (4.0-60.3)
[2024-05-08 04:08] LABS: BACTERIA,URINE FEW (NS); SQUAMOUS EPITHELIAL CELLS,UR OCCASIONAL (NS,R,O)
[2024-05-08 04:09] LABS: OTHER CRYSTALS,URINE FEW (NS)
[2024-05-08] MEDS: Albuterol/Ipratropium 3.0-0.5 MG/3 ML Neb Soln NEB ONE (04:34)
[2024-05-08 04:39] LABS: BASOPHILS PERCENT MAN 2 % (0-2); EOSINOPHILS PERCENT MAN 5 % (0-5); LYMPHOCYTES PERCENT MAN 24 % (13-37); MONOCYTES PERCENT MAN 8 % (4-12); SEG NEUTROPHILS PERCENT MAN 61 % (46-82)
[2024-05-08] MEDS: Levofloxacin/Dextrose 5%-Water 500 MG in Premix Bag 1 BAG IV ONE (04:57)
[2024-05-08] MEDS ORDERED: Ondansetron 4 MG/2 ML SDV IV PRN (06:00)
[2024-05-08] MEDS ORDERED: Sennosides/Docusate Sodium 50-8.6 MG Tab PO PRN (06:00)
[2024-05-08] MEDS ORDERED: Albuterol 0.083% 2.5 MG/3 ML Neb Soln NEB PRN (06:00)
[2024-05-08] MEDS: Albuterol/Ipratropium 3.0-0.5 MG/3 ML Neb Soln ONE (07:22)
[2024-05-08] MEDS: Enoxaparin 40 MG/0.4 ML Syringe SUBCUT SCH (08:37)
[2024-05-08] MEDS: Albuterol/Ipratropium 3.0-0.5 MG/3 ML Neb Soln NEB SCH (08:37)
[2024-05-08] MEDS: methylPREDNISolone Sodium Succinate 125 MG/2 ML SDV IVPUSH SCH (11:33)
[2024-05-08] MEDS: Sodium Chloride 0.9% 10 ML Syringe FLUSH PRN (11:36)
[2024-05-08] MEDS ORDERED: methylPREDNISolone Sodium Succinate 125 MG/2 ML SDV IVPUSH SCH (12:00)
[2024-05-08] MEDS: Mirtazapine 15 MG Tab PO SCH (20:05)
[2024-05-08] MEDS: Melatonin 3 MG Tab PO PRN (20:06)
[2024-05-09] MEDS: Levofloxacin/Dextrose 5%-Water 500 MG in Premix Bag 1 BAG IV SCH (04:09)
[2024-05-09 06:49] LABS: BLOOD UREA NITROGEN,BUN 29 mg/dL (7-18); BUN/CREATININE RATIO 22.3 (9-20); CALCIUM 8.9 mg/dL (8.6-10.2); CARBON DIOXIDE,CO2 28 mmol/L (21-32); CHLORIDE,CL 105 mmol/L (100-110); CREATININE 1.3 mg/dL (0.70-1.30); EST CRCL DRUG DOSING (CG) 39.59 mL/min; ESTIMATED GFR 55 mL/min (>60); GLUCOSE RANDOM 143 mg/dL (80-116); POTASSIUM,K 4.4 mmol/L (3.5-5.3); SODIUM,NA 141 mmol/L (135-145)
[2024-05-09 07:34] LABS: HEMATOCRIT 41.9 % (38.3-50.1); HEMOGLOBIN 13.2 g/dL (12.9-17.7); MEAN CORPUSCULAR HEMOGLOBIN 29.9 pg (27.0-33.3); MEAN CORPUSCULAR HGB CONC 31.6 g/dL (28.7-35.3); MEAN CORPUSCULAR VOLUME 94.8 fL (80.8-98.7); PLATELET COUNT,PLT 366 x10(3)uL (117-477); RED BLOOD CELL COUNT 4.42 x10(6)uL (3.90-5.90); RED CELL DISTRIBUTION WIDTH 14.9 % (12.4-15.0); WHITE BLOOD CELL COUNT,WBC 18.5 x10-3/uL (3.2-10.1)
[2024-05-09 07:48] LABS: BAND PERCENT MAN 4 % (0-6); LYMPHOCYTES PERCENT MAN 11 % (13-37); MONOCYTES PERCENT MAN 3 % (4-12); SEG NEUTROPHILS PERCENT MAN 82 % (46-82)
[2024-05-09] MEDS ORDERED: Acetaminophen 500 MG Tab PO PRN (09:28)
[2024-05-09] MEDS: Benzonatate 100 MG Cap PO PRN (10:15)
[2024-05-09] MEDS: Timolol Maleate 0.5% Ophth Soln 5 ML Bottle EYEBOTH SCH (10:15)
[2024-05-09] MEDS: amLODIPine 5 MG Tab PO SCH (10:15)
[2024-05-09] MEDS: methylPREDNISolone Sodium Succinate 125 MG/2 ML SDV IVPUSH SCH (17:33)
[2024-05-09] MEDS: atorvaSTATin 20 MG Tab PO SCH (20:32)
[2024-05-09] MEDS: Sertraline 25 MG Tab PO SCH (20:32)
[2024-05-09] MEDS: Polyethylene Glycol 3350 Powder 17 GM Packet PO SCH (20:36)
[2024-05-10] MEDS: Timolol Maleate 0.25% Ophth Soln 5 ML Bottle ONE
[2024-05-10 06:26] LABS: HEMATOCRIT 41.6 % (38.3-50.1); HEMOGLOBIN 13.2 g/dL (12.9-17.7); MEAN CORPUSCULAR HEMOGLOBIN 28.5 pg (27.0-33.3); MEAN CORPUSCULAR HGB CONC 31.8 g/dL (28.7-35.3); MEAN CORPUSCULAR VOLUME 89.6 fL (80.8-98.7); MEAN PLATELET VOLUME 7.7 fL (6.7-11.0); PLATELET COUNT,PLT 383 x10(3)uL (117-477); RED BLOOD CELL COUNT 4.64 x10(6)uL (3.90-5.90); RED CELL DISTRIBUTION WIDTH 14.8 % (12.4-15.0); WHITE BLOOD CELL COUNT,WBC 23.6 x10-3/uL (3.2-10.1)
[2024-05-10 06:31] LABS: BLOOD UREA NITROGEN,BUN 46 mg/dL (7-18); BUN/CREATININE RATIO 32.9 (9-20); CALCIUM 8.8 mg/dL (8.6-10.2); CARBON DIOXIDE,CO2 29 mmol/L (21-32); CHLORIDE,CL 105 mmol/L (100-110); CREATININE 1.4 mg/dL (0.70-1.30); EST CRCL DRUG DOSING (CG) 36.76 mL/min; ESTIMATED GFR 50 mL/min (>60); GLUCOSE RANDOM 131 mg/dL (80-116); POTASSIUM,K 4.2 mmol/L (3.5-5.3); SODIUM,NA 140 mmol/L (135-145)
[2024-05-10 06:34] LABS: BAND PERCENT MAN 7 % (0-6); LYMPHOCYTES PERCENT MAN 9 % (13-37); MONOCYTES PERCENT MAN 2 % (4-12); SEG NEUTROPHILS PERCENT MAN 82 % (46-82)
[2024-05-10] MEDS: Furosemide 20 MG/2 ML VIAL IVPUSH SCH (09:15)
[2024-05-10] MEDS: methylPREDNISolone Sodium Succinate 40 MG/1 ML SDV IVPUSH SCH (17:50)
[2024-05-10] MEDS: Tamsulosin 0.4 MG Cap.ER PO SCH (20:03)
[2024-05-11 06:18] LABS: HEMATOCRIT 42.7 % (38.3-50.1); HEMOGLOBIN 13.5 g/dL (12.9-17.7); MEAN CORPUSCULAR HEMOGLOBIN 28.6 pg (27.0-33.3); MEAN CORPUSCULAR HGB CONC 31.6 g/dL (28.7-35.3); MEAN CORPUSCULAR VOLUME 90.5 fL (80.8-98.7); MEAN PLATELET VOLUME 7.7 fL (6.7-11.0); PLATELET COUNT,PLT 394 x10(3)uL (117-477); RED BLOOD CELL COUNT 4.72 x10(6)uL (3.90-5.90); RED CELL DISTRIBUTION WIDTH 14.9 % (12.4-15.0); WHITE BLOOD CELL COUNT,WBC 15.1 x10-3/uL (3.2-10.1)
[2024-05-11 06:19] LABS: BLOOD UREA NITROGEN,BUN 46 mg/dL (7-18); BUN/CREATININE RATIO 35.4 (9-20); CALCIUM 8.5 mg/dL (8.6-10.2); CARBON DIOXIDE,CO2 30 mmol/L (21-32); CHLORIDE,CL 106 mmol/L (100-110); CREATININE 1.3 mg/dL (0.70-1.30); EST CRCL DRUG DOSING (CG) 39.59 mL/min; ESTIMATED GFR 55 mL/min (>60); GLUCOSE RANDOM 128 mg/dL (80-116); POTASSIUM,K 4.5 mmol/L (3.5-5.3); SODIUM,NA 142 mmol/L (135-145)
[2024-05-11 06:34] LABS: BAND PERCENT MAN 1 % (0-6); LYMPHOCYTES PERCENT MAN 8 % (13-37); MONOCYTES PERCENT MAN 1 % (4-12); SEG NEUTROPHILS PERCENT MAN 90 % (46-82)
[2024-05-11] MEDS: predniSONE 20 MG Tab PO SCH (14:04)
[2024-05-12 05:58] LABS: BLOOD UREA NITROGEN,BUN 45 mg/dL (7-18); BUN/CREATININE RATIO 37.5 (9-20); CALCIUM 8.3 mg/dL (8.6-10.2); CARBON DIOXIDE,CO2 31 mmol/L (21-32); CHLORIDE,CL 106 mmol/L (100-110); CREATININE 1.2 mg/dL (0.70-1.30); EST CRCL DRUG DOSING (CG) 43.61 mL/min; ESTIMATED GFR 60 mL/min (>60); GLUCOSE RANDOM 121 mg/dL (80-116); POTASSIUM,K 4.6 mmol/L (3.5-5.3); SODIUM,NA 142 mmol/L (135-145)
[2024-05-12] MEDS: Levofloxacin 250 MG Tab PO ONE (15:39)
== END 2024-05-12 16:03 | disposition home or self-care (01) | DRG 193 ==
LOC: FB.ED 03:27 → FB.MS 06:00
PROVIDERS: ADMIT Emergency Medicine; ATTEND Internal Medicine
DX: J18.9 Pneumonia, unspecified organism (principal); I50.33 Acute on chronic diastolic (congestive) heart failure; J96.01 Acute respiratory failure with hypoxia; J96.02 Acute respiratory failure with hypercapnia; N13.9 Obstructive and reflux uropathy, unspecified; J44.0 Chronic obstructive pulmonary disease with (acute) lower respiratory infection; I10 Essential (primary) hypertension; J44.1 Chronic obstructive pulmonary disease with (acute) exacerbation; N39.0 Urinary tract infection, site not specified; I11.0 Hypertensive heart disease with heart failure; E78.00 Pure hypercholesterolemia, unspecified; G30.9 Alzheimer's disease, unspecified; F02.80 Dementia in other diseases classified elsewhere, unspecified severity, without behavioral disturbance, psychotic disturbance, mood disturbance, and anxiety; R79.89 Other specified abnormal findings of blood chemistry; F01.B0 Vascular dementia, moderate, without behavioral disturbance, psychotic disturbance, mood disturbance, and anxiety; N40.1 Benign prostatic hyperplasia with lower urinary tract symptoms; K22.70 Barrett's esophagus without dysplasia; B96.5 Pseudomonas (aeruginosa) (mallei) (pseudomallei) as the cause of diseases classified elsewhere; Z79.02 Long term (current) use of antithrombotics/antiplatelets; Z79.1 Long term (current) use of non-steroidal anti-inflammatories (NSAID); Z79.899 Other long term (current) drug therapy; Z87.891 Personal history of nicotine dependence; Z98.49 Cataract extraction status, unspecified eye; Z98.890 Other specified postprocedural states
CPT/HCPCS: 36415; 71045; 80053; 81001; 83605; 83880; 84484; 85025; 87040 ×2; 87086; 87186; 87428; 93005; 93010; 94640 ×4; 99285; J1956; J2270; J2919; J7030; 80048; 87070; 87077; 87088; 87205; 93306; 94150; 97161-GP; 97165-GO; 99223; 99233; 99238; A9270-GY; J1650; J1940; J7512; J7620

== ENCOUNTER 2024-09-24 13:30 | Inpatient (IN) | payer MEDICARE, BC ==
[2024-09-24 14:08] LABS: HEMOGLOBIN 13.4 g/dL (12.9-17.7)
[2024-09-24 14:12] LABS: BLOOD UREA NITROGEN,BUN 29 mg/dL (7-18); BUN/CREATININE RATIO 20.7 (9-20); CALCIUM 9.6 mg/dL (8.6-10.2); CARBON DIOXIDE,CO2 28 mmol/L (21-32); CHLORIDE,CL 108 mmol/L (100-110); CREATININE 1.4 mg/dL (0.70-1.30); ESTIMATED GFR 50 mL/min (>60); GLUCOSE RANDOM 155 mg/dL (80-116); POTASSIUM,K 3.8 mmol/L (3.5-5.3); SODIUM,NA 143 mmol/L (135-145)
[2024-09-24 14:18] LABS: A/G RATIO 0.8; ALANINE AMINOTRANSFERASE,ALT 15 U/L (12-36); ALBUMIN 3.4 g/dL (3.2-4.6); ALKALINE PHOSPHATASE 60 IU/L (56-112); ASPARTATE AMNIOTRANSFERASE,AST 13 IU/L (5-25); BILIRUBIN TOTAL 0.2 mg/dL (0.1-1.3); PROTEIN TOTAL,TP 7.6 g/dL (6.0-8.0)
[2024-09-24 14:24] LABS: HEMATOCRIT 39.5 % (38.3-50.1); MEAN CORPUSCULAR HEMOGLOBIN 28.5 pg (27.0-33.3); MEAN CORPUSCULAR HGB CONC 33.9 g/dL (28.7-35.3); MEAN CORPUSCULAR VOLUME 84.1 fL (80.8-98.7); MEAN PLATELET VOLUME 8.5 fL (6.7-11.0); PLATELET COUNT,PLT 334 x10(3)uL (117-477); RED CELL DISTRIBUTION WIDTH 14.5 % (12.4-15.0)
[2024-09-24 14:32] LABS: BAND PERCENT MAN 4 % (0-6); LYMPHOCYTES PERCENT MAN 6 % (13-37); SEG NEUTROPHILS PERCENT MAN 87 % (46-82)
[2024-09-24 14:33] LABS: MONOCYTES PERCENT MAN 3 % (4-12)
[2024-09-24 14:49] LABS: BILIRUBIN,URINE NEGATIVE (NEGATIVE); GLUCOSE,URINE NORMAL (NORMAL); KETONES,URINE NEGATIVE (NEGATIVE); LEUKOCYTE ESTERASE,URINE NEGATIVE (NEGATIVE); NITRITE,URINE NEGATIVE (NEGATIVE); OCCULT BLOOD,URINE LARGE (NEGATIVE); PROTEIN,URINE TRACE mg/dL (NEGATIVE); UROBILINOGEN,URINE NORMAL (NEGATIVE)
[2024-09-24] MEDS: Iopamidol 755 Mg/ML 100 ML Bottle IV SCH (15:02)
[2024-09-24] MEDS: Sodium Chloride 0.9% 1,000 ML IV SCH (15:03)
[2024-09-24 15:08] LABS: APPEARANCE,URINE CLEAR (CLEAR); BACTERIA,URINE FEW (NS); COLOR,URINE YELLOW (YELLOW); RBC,URINE 20-30 (0-5); SQUAMOUS EPITHELIAL CELLS,UR RARE (NS,R,O); WBC,URINE 0-5 (0-5)
[2024-09-24] MEDS ORDERED: VANCOmycin 1 GM in Sodium Chloride 0.9% 250 ML IV ONE (16:40)
[2024-09-24] MEDS ORDERED: Sennosides/Docusate Sodium 50-8.6 MG Tab PO PRN (17:00)
[2024-09-24] MEDS ORDERED: Ondansetron 4 MG/2 ML SDV IV PRN (17:00)
[2024-09-24] MEDS: Cefepime 2 GM Vial IVPUSH ONE (17:53)
[2024-09-24] MEDS: Enoxaparin 40 MG/0.4 ML Syringe SUBCUT SCH (18:08)
[2024-09-24] MEDS: VANCOmycin 1 GM/200 ML 200 ML IV ONE (18:15)
[2024-09-24] MEDS: VANCOmycin 1 GM/200 ML 200 ML ONE (18:21)
[2024-09-24] MEDS ORDERED: Acetaminophen 500 MG Tab PO PRN (21:13)
[2024-09-24] MEDS ORDERED: Loperamide 2 MG Cap PO PRN (21:13)
[2024-09-24] MEDS: Tamsulosin 0.4 MG Cap.ER PO SCH (23:18)
[2024-09-24] MEDS: atorvaSTATin 20 MG Tab PO SCH (23:19)
[2024-09-24] MEDS: Melatonin 3 MG Tab PO SCH (23:20)
[2024-09-24] MEDS: Mirtazapine 15 MG Tab PO SCH (23:20)
[2024-09-24] MEDS: Cholecalciferol (Vitamin D3) 25 MCG Tab PO SCH (23:21)
[2024-09-24] MEDS: Sertraline 25 MG Tab PO SCH (23:22)
[2024-09-24] MEDS: Polyethylene Glycol 3350 Powder 17 GM Packet PO SCH (23:22)
[2024-09-25] MEDS: Albuterol/Ipratropium 3.0-0.5 MG/3 ML Neb Soln INH PRN (01:50)
[2024-09-25] MEDS ORDERED: Cefepime 2 GM Vial IVPUSH SCH (05:00)
[2024-09-25 06:38] LABS: BASOPHILS PERCENT AUTO 0.3 % (0.3-3.8); HEMATOCRIT 37.2 % (38.3-50.1); HEMOGLOBIN 12.6 g/dL (12.9-17.7); LYMPHOCYTES ABSOLUTE AUTO 1.5 x10-3/uL (0.5-4.5); LYMPHOCYTES PERCENT AUTO 16.5 % (15.8-45.3); MEAN CORPUSCULAR HEMOGLOBIN 29.4 pg (27.0-33.3); MEAN CORPUSCULAR VOLUME 86.6 fL (80.8-98.7); MONOCYTES ABSOLUTE AUTO 0.4 x10-3/uL (0.0-1.2); MONOCYTES PERCENT AUTO 4.7 % (5.5-15.2); NEUTROPHILS ABSOLUTE AUTO 7.4 x10-3/uL (1.7-6.9); NEUTROPHILS PERCENT AUTO 78.5 % (40.3-71.8); PLATELET COUNT,PLT 279 x10(3)uL (117-477); RED BLOOD CELL COUNT 4.29 x10(6)uL (3.90-5.90); RED CELL DISTRIBUTION WIDTH 14.2 % (12.4-15.0); WHITE BLOOD CELL COUNT,WBC 9.4 x10-3/uL (3.2-10.1)
[2024-09-25 06:49] LABS: A/G RATIO 0.8; ALANINE AMINOTRANSFERASE,ALT 13 U/L (12-36); ALBUMIN 2.9 g/dL (3.2-4.6); ALKALINE PHOSPHATASE 51 IU/L (56-112); ASPARTATE AMNIOTRANSFERASE,AST 15 IU/L (5-25); BILIRUBIN TOTAL 0.2 mg/dL (0.1-1.3); BLOOD UREA NITROGEN,BUN 25 mg/dL (7-18); BUN/CREATININE RATIO 22.7 (9-20); CALCIUM 8.9 mg/dL (8.6-10.2); CARBON DIOXIDE,CO2 29 mmol/L (21-32); CHLORIDE,CL 110 mmol/L (100-110); CREATININE 1.1 mg/dL (0.70-1.30); EST CRCL DRUG DOSING (CG) 48.36 mL/min; ESTIMATED GFR 66 mL/min (>60); GLUCOSE RANDOM 95 mg/dL (80-116); POTASSIUM,K 3.6 mmol/L (3.5-5.3); PROTEIN TOTAL,TP 6.5 g/dL (6.0-8.0); SODIUM,NA 144 mmol/L (135-145)
[2024-09-25] MEDS: Cefepime 2 GM Vial IVPUSH SCH (07:10)
[2024-09-25 08:52] LABS: TROPONIN I 16.6 pg/mL (4.0-60.3)
[2024-09-25] MEDS: Albuterol/Ipratropium 3.0-0.5 MG/3 ML Neb Soln INH SCH (10:09)
[2024-09-25] MEDS: Sennosides/Docusate Sodium 50-8.6 MG Tab PO SCH (10:10)
[2024-09-25] MEDS: Timolol Maleate 0.5% Ophth Soln 5 ML Bottle EYEBOTH SCH (10:10)
[2024-09-25] MEDS: Carboxymethylcellulose Sodium 0.5% Ophth Soln 15 ML Bottle EYEBOTH SCH (10:11)
[2024-09-25] MEDS: guaiFENesin 600 MG Tab.ER PO SCH (10:13)
[2024-09-25] MEDS: Losartan 25 MG Tab PO SCH (10:13)
[2024-09-25] MEDS: amLODIPine 5 MG Tab PO SCH (10:13)
[2024-09-25] MEDS ORDERED: Sodium Chloride 0.9% 1,000 ML IV SCH (12:30)
[2024-09-25] MEDS: VANCOmycin 1.25 GM/250 ML 1.25 GM in Premix Bag 1 BAG IV SCH (17:11)
[2024-09-25] MEDS: Sodium Chloride 0.9% 10 ML Syringe FLUSH PRN (17:16)
[2024-09-25] MEDS ORDERED: VANCOmycin 1 GM/200 ML 1 GM in Premix Bag 1 BAG IV SCH (18:30)
[2024-09-25] MEDS ORDERED: Polyethylene Glycol 3350 Powder 17 GM Packet PO SCH (21:00)
[2024-09-25] MEDS ORDERED: atorvaSTATin 20 MG Tab PO SCH (21:00)
[2024-09-25] MEDS ORDERED: Mirtazapine 15 MG Tab PO SCH (21:00)
[2024-09-25] MEDS ORDERED: Tamsulosin 0.4 MG Cap.ER PO SCH (21:00)
[2024-09-25] MEDS ORDERED: Melatonin 3 MG Tab PO SCH (21:00)
[2024-09-25] MEDS ORDERED: Cholecalciferol (Vitamin D3) 25 MCG Tab PO SCH (21:00)
[2024-09-25] MEDS ORDERED: Sertraline 25 MG Tab PO SCH (21:00)
[2024-09-26 06:44] LABS: BASOPHILS ABSOLUTE AUTO 0.1 x10-3/uL (0.0-0.3); BASOPHILS PERCENT AUTO 0.9 % (0.3-3.8); EOSINOPHILS ABSOLUTE AUTO 0.2 x10-3/uL (0.0-0.6); EOSINOPHILS PERCENT AUTO 2.2 % (0.1-6.8); HEMATOCRIT 42.8 % (38.3-50.1); HEMOGLOBIN 14.6 g/dL (12.9-17.7); LYMPHOCYTES ABSOLUTE AUTO 2.1 x10-3/uL (0.5-4.5); LYMPHOCYTES PERCENT AUTO 29.8 % (15.8-45.3); MEAN CORPUSCULAR HEMOGLOBIN 29.4 pg (27.0-33.3); MEAN CORPUSCULAR HGB CONC 34.3 g/dL (28.7-35.3); MEAN CORPUSCULAR VOLUME 85.8 fL (80.8-98.7); MEAN PLATELET VOLUME 7.8 fL (6.7-11.0); MONOCYTES ABSOLUTE AUTO 0.6 x10-3/uL (0.0-1.2); NEUTROPHILS ABSOLUTE AUTO 4.1 x10-3/uL (1.7-6.9); NEUTROPHILS PERCENT AUTO 58.1 % (40.3-71.8); PLATELET COUNT,PLT 320 x10(3)uL (117-477); RED BLOOD CELL COUNT 4.98 x10(6)uL (3.90-5.90); RED CELL DISTRIBUTION WIDTH 14.2 % (12.4-15.0); WHITE BLOOD CELL COUNT,WBC 7.1 x10-3/uL (3.2-10.1)
[2024-09-26 06:52] LABS: A/G RATIO 0.7; ALANINE AMINOTRANSFERASE,ALT 15 U/L (12-36); ALBUMIN 3.1 g/dL (3.2-4.6); ALKALINE PHOSPHATASE 53 IU/L (56-112); ASPARTATE AMNIOTRANSFERASE,AST 20 IU/L (5-25); BILIRUBIN TOTAL 0.4 mg/dL (0.1-1.3); BLOOD UREA NITROGEN,BUN 22 mg/dL (7-18); CALCIUM 8.9 mg/dL (8.6-10.2); CARBON DIOXIDE,CO2 32 mmol/L (21-32); CHLORIDE,CL 105 mmol/L (100-110); ESTIMATED GFR 74 mL/min (>60); GLUCOSE RANDOM 81 mg/dL (80-116); POTASSIUM,K 3.6 mmol/L (3.5-5.3); PROTEIN TOTAL,TP 7.3 g/dL (6.0-8.0); SODIUM,NA 142 mmol/L (135-145)
[2024-09-26] MEDS: Azithromycin 500 MG in Sodium Chloride 0.9% 250 ML IV SCH (10:47)
[2024-09-26] MEDS: cefTRIAXone 2 GM Vial IVPUSH SCH (17:30)
[2024-09-27] MEDS: VANCOmycin 1 GM/200 ML 1 GM in Premix Bag 1 BAG IV SCH (00:30)
[2024-09-27 06:59] LABS: BLOOD UREA NITROGEN,BUN 24 mg/dL (7-18); CALCIUM 8.9 mg/dL (8.6-10.2); CARBON DIOXIDE,CO2 31 mmol/L (21-32); CHLORIDE,CL 105 mmol/L (100-110); ESTIMATED GFR 74 mL/min (>60); GLUCOSE RANDOM 89 mg/dL (80-116); POTASSIUM,K 3.5 mmol/L (3.5-5.3); SODIUM,NA 141 mmol/L (135-145)
[2024-09-27 07:00] LABS: BASOPHILS ABSOLUTE AUTO 0.1 x10-3/uL (0.0-0.3); BASOPHILS PERCENT AUTO 0.8 % (0.3-3.8); EOSINOPHILS ABSOLUTE AUTO 0.4 x10-3/uL (0.0-0.6); EOSINOPHILS PERCENT AUTO 6.3 % (0.1-6.8); HEMATOCRIT 39.8 % (38.3-50.1); HEMOGLOBIN 13.8 g/dL (12.9-17.7); LYMPHOCYTES ABSOLUTE AUTO 1.8 x10-3/uL (0.5-4.5); MEAN CORPUSCULAR HEMOGLOBIN 29.8 pg (27.0-33.3); MEAN CORPUSCULAR HGB CONC 34.6 g/dL (28.7-35.3); MEAN CORPUSCULAR VOLUME 86.1 fL (80.8-98.7); MEAN PLATELET VOLUME 7.9 fL (6.7-11.0); MONOCYTES ABSOLUTE AUTO 0.7 x10-3/uL (0.0-1.2); MONOCYTES PERCENT AUTO 11.4 % (5.5-15.2); NEUTROPHILS ABSOLUTE AUTO 3.3 x10-3/uL (1.7-6.9); NEUTROPHILS PERCENT AUTO 52.5 % (40.3-71.8); PLATELET COUNT,PLT 288 x10(3)uL (117-477); RED BLOOD CELL COUNT 4.62 x10(6)uL (3.90-5.90); RED CELL DISTRIBUTION WIDTH 14.1 % (12.4-15.0); WHITE BLOOD CELL COUNT,WBC 6.3 x10-3/uL (3.2-10.1)
[2024-09-28 06:58] LABS: BASOPHILS PERCENT AUTO 0.6 % (0.3-3.8); EOSINOPHILS ABSOLUTE AUTO 0.6 x10-3/uL (0.0-0.6); EOSINOPHILS PERCENT AUTO 9.7 % (0.1-6.8); HEMATOCRIT 40.6 % (38.3-50.1); LYMPHOCYTES PERCENT AUTO 33.9 % (15.8-45.3); MEAN CORPUSCULAR HEMOGLOBIN 29.4 pg (27.0-33.3); MEAN CORPUSCULAR HGB CONC 34.4 g/dL (28.7-35.3); MEAN CORPUSCULAR VOLUME 85.5 fL (80.8-98.7); MEAN PLATELET VOLUME 8.4 fL (6.7-11.0); MONOCYTES ABSOLUTE AUTO 0.7 x10-3/uL (0.0-1.2); MONOCYTES PERCENT AUTO 12.3 % (5.5-15.2); NEUTROPHILS ABSOLUTE AUTO 2.6 x10-3/uL (1.7-6.9); NEUTROPHILS PERCENT AUTO 43.5 % (40.3-71.8); PLATELET COUNT,PLT 280 x10(3)uL (117-477); RED BLOOD CELL COUNT 4.75 x10(6)uL (3.90-5.90); RED CELL DISTRIBUTION WIDTH 14.3 % (12.4-15.0); WHITE BLOOD CELL COUNT,WBC 5.9 x10-3/uL (3.2-10.1)
[2024-09-28 07:03] LABS: BLOOD UREA NITROGEN,BUN 19 mg/dL (7-18); CALCIUM 8.9 mg/dL (8.6-10.2); CARBON DIOXIDE,CO2 30 mmol/L (21-32); CHLORIDE,CL 105 mmol/L (100-110); ESTIMATED GFR 74 mL/min (>60); GLUCOSE RANDOM 84 mg/dL (80-116); POTASSIUM,K 3.3 mmol/L (3.5-5.3); SODIUM,NA 140 mmol/L (135-145)
[2024-09-28] MEDS: Potassium Chloride 20 MEQ in Premix Bag 1 BAG IV SCH (10:34)
[2024-09-28] MEDS: Potassium Chloride 20 MEQ Tab.ER PO ONE (10:57)
[2024-09-28 16:08] LABS: STREPTOCOCCUS PNEUMONIAE AG,UR Positive (Negative)
[2024-09-29 01:30] LABS: LEGIONELLA PNEUMOPHILA AG,URN Negative (Negative)
[2024-09-29 07:22] LABS: BASOPHILS PERCENT AUTO 0.8 % (0.3-3.8); EOSINOPHILS ABSOLUTE AUTO 0.6 x10-3/uL (0.0-0.6); EOSINOPHILS PERCENT AUTO 9.5 % (0.1-6.8); HEMATOCRIT 39.4 % (38.3-50.1); HEMOGLOBIN 13.7 g/dL (12.9-17.7); LYMPHOCYTES ABSOLUTE AUTO 2.1 x10-3/uL (0.5-4.5); LYMPHOCYTES PERCENT AUTO 33.2 % (15.8-45.3); MEAN CORPUSCULAR HEMOGLOBIN 30.2 pg (27.0-33.3); MEAN CORPUSCULAR HGB CONC 34.8 g/dL (28.7-35.3); MEAN CORPUSCULAR VOLUME 86.8 fL (80.8-98.7); MEAN PLATELET VOLUME 8.4 fL (6.7-11.0); MONOCYTES ABSOLUTE AUTO 0.7 x10-3/uL (0.0-1.2); MONOCYTES PERCENT AUTO 11.8 % (5.5-15.2); NEUTROPHILS ABSOLUTE AUTO 2.8 x10-3/uL (1.7-6.9); NEUTROPHILS PERCENT AUTO 44.7 % (40.3-71.8); PLATELET COUNT,PLT 261 x10(3)uL (117-477); RED BLOOD CELL COUNT 4.54 x10(6)uL (3.90-5.90); WHITE BLOOD CELL COUNT,WBC 6.3 x10-3/uL (3.2-10.1)
[2024-09-29 07:24] LABS: BLOOD UREA NITROGEN,BUN 22 mg/dL (7-18); CALCIUM 9.1 mg/dL (8.6-10.2); CARBON DIOXIDE,CO2 30 mmol/L (21-32); CHLORIDE,CL 106 mmol/L (100-110); CREATININE 1.1 mg/dL (0.70-1.30); EST CRCL DRUG DOSING (CG) 48.36 mL/min; ESTIMATED GFR 66 mL/min (>60); GLUCOSE RANDOM 89 mg/dL (80-116); POTASSIUM,K 3.9 mmol/L (3.5-5.3); SODIUM,NA 140 mmol/L (135-145)
[2024-09-29] MEDS: Azithromycin 500 MG Tab PO SCH (11:33)
== END 2024-09-29 16:00 | disposition home health service (06) | DRG 871 ==
LOC: FB.ED 13:30 → FB.MS 17:00 → FB.ED 17:04
PROVIDERS: ADMIT Emergency Medicine; ATTEND Internal Medicine
DX: A40.3 Sepsis due to Streptococcus pneumoniae (principal); J44.9 Chronic obstructive pulmonary disease, unspecified; J13 Pneumonia due to Streptococcus pneumoniae; J96.01 Acute respiratory failure with hypoxia; J44.0 Chronic obstructive pulmonary disease with (acute) lower respiratory infection; I13.0 Hypertensive heart and chronic kidney disease with heart failure and stage 1 through stage 4 chronic kidney disease, or unspecified chronic kidney disease; E87.20 Acidosis, unspecified; E78.5 Hyperlipidemia, unspecified; N17.9 Acute kidney failure, unspecified; Z66 Do not resuscitate; E87.6 Hypokalemia; E78.00 Pure hypercholesterolemia, unspecified; M81.0 Age-related osteoporosis without current pathological fracture; G30.9 Alzheimer's disease, unspecified; F02.80 Dementia in other diseases classified elsewhere, unspecified severity, without behavioral disturbance, psychotic disturbance, mood disturbance, and anxiety; N18.9 Chronic kidney disease, unspecified; I50.9 Heart failure, unspecified; I49.3 Ventricular premature depolarization; B34.8 Other viral infections of unspecified site; R79.89 Other specified abnormal findings of blood chemistry; Z79.52 Long term (current) use of systemic steroids; Z98.890 Other specified postprocedural states; Z98.49 Cataract extraction status, unspecified eye; Z79.899 Other long term (current) drug therapy; Z87.891 Personal history of nicotine dependence
CPT/HCPCS: 36415; 71045; 71260; 74177; 80048; 80053; 80202; 81001; 83605; 83880; 84484; 85025; 87040; 87449; 87486; 87581; 87633; 87798; 87899; 93308; 94640; 96360; 96361; 97165-GO; 99223; 99232; 99233; 99238; 99285; 99285-25; A9270-GY; J0456; J0692; J0696; J1650; J3372; J7030; J7050; Q9967; U0002

== ENCOUNTER 2024-12-30 23:18 | Inpatient (IN) | payer MEDICARE, BC ==
[2024-12-30] MEDS ORDERED: Sodium Chloride 0.9% 10 ML Syringe FLUSH PRN (23:40)
[2024-12-30 23:46] LABS: BASE EXCESS VENOUS,POC 4 mmol/L (-2 - 3+); PCO2 VENOUS,POC 46 mmHg (41-51); PH VENOUS,POC 7.42 pH Units (7.32-7.43)
[2024-12-30 23:47] LABS: BLOOD UREA NITROGEN,BUN 28 mg/dL (7-18); CARBON DIOXIDE,CO2 30 mmol/L (21-32); CHLORIDE,CL 105 mmol/L (100-110); CREATININE 1.3 mg/dL (0.70-1.30); ESTIMATED GFR 54 mL/min (>60); GLUCOSE RANDOM 117 mg/dL (80-116); MEAN PLATELET VOLUME 7.5 fL (6.7-11.0); PLATELET COUNT,PLT 309 x10(3)uL (117-477); POTASSIUM,K 3.2 mmol/L (3.5-5.3); RED BLOOD CELL COUNT 5.25 x10(6)uL (3.90-5.90); RED CELL DISTRIBUTION WIDTH 15.5 % (12.4-15.0); SODIUM,NA 146 mmol/L (135-145); WHITE BLOOD CELL COUNT,WBC 18.2 x10-3/uL (3.2-10.1)
[2024-12-30 23:53] LABS: A/G RATIO 0.8; ALANINE AMINOTRANSFERASE,ALT 39 U/L (12-36); ASPARTATE AMNIOTRANSFERASE,AST 23 IU/L (5-25); BILIRUBIN TOTAL 0.6 mg/dL (0.1-1.3); PROTEIN TOTAL,TP 7.2 g/dL (6.0-8.0)
[2024-12-30] MEDS ORDERED: Ondansetron 4 MG/2 ML SDV IV PRN (23:59)
[2024-12-31] LABS: PRO B-TYPE NATRIUR PEPT,BNPPRO 784.0 pg/mL (<=450)
[2024-12-31] MEDS: Furosemide 40 MG/4 ML VIAL IVPUSH ONE (00:09)
[2024-12-31 00:11] LABS: LYMPHOCYTES PERCENT MAN 5 % (13-37); MONOCYTES PERCENT MAN 6 % (4-12); SEG NEUTROPHILS PERCENT MAN 89 % (46-82)
[2024-12-31] MEDS: Sodium Chloride 0.9% 10 ML Syringe FLUSH PRN (00:12)
[2024-12-31 00:35] LABS: GLUCOSE,URINE NORMAL (NORMAL); OCCULT BLOOD,URINE MODERATE (NEGATIVE)
[2024-12-31 00:48] LABS: APPEARANCE,URINE CLEAR (CLEAR)
[2024-12-31 00:56] LABS: SQUAMOUS EPITHELIAL CELLS,UR OCCASIONAL (NS,R,O)
[2024-12-31 01:31] LABS: INFLUENZA A NAA NEGATIVE (NEGATIVE); INFLUENZA B NAA NEGATIVE (NEGATIVE); RESPIRATORY SYNCYTIAL VIR NAA NEGATIVE (NEGATIVE)
[2024-12-31 01:37] LABS: CORONAVIRUS COVID-19 NAA NEGATIVE (NEGATIVE)
[2024-12-31 06:59] LABS: MEAN PLATELET VOLUME 7.8 fL (6.7-11.0); PLATELET COUNT,PLT 268 x10(3)uL (117-477); RED BLOOD CELL COUNT 4.85 x10(6)uL (3.90-5.90); RED CELL DISTRIBUTION WIDTH 14.8 % (12.4-15.0); WHITE BLOOD CELL COUNT,WBC 21.9 x10-3/uL (3.2-10.1)
[2024-12-31 07:15] LABS: LYMPHOCYTES PERCENT MAN 9 % (13-37); MONOCYTES PERCENT MAN 4 % (4-12); SEG NEUTROPHILS PERCENT MAN 87 % (46-82)
[2024-12-31 07:16] LABS: A/G RATIO 0.8; ALANINE AMINOTRANSFERASE,ALT 31 U/L (12-36); ASPARTATE AMNIOTRANSFERASE,AST 18 IU/L (5-25); BILIRUBIN TOTAL 0.8 mg/dL (0.1-1.3); BLOOD UREA NITROGEN,BUN 27 mg/dL (7-18); CARBON DIOXIDE,CO2 32 mmol/L (21-32); CHLORIDE,CL 106 mmol/L (100-110); CREATININE 1.4 mg/dL (0.70-1.30); EST CRCL DRUG DOSING (CG) 36.72 mL/min; ESTIMATED GFR 50 mL/min (>60); GLUCOSE RANDOM 108 mg/dL (80-116); PROTEIN TOTAL,TP 6.4 g/dL (6.0-8.0); SODIUM,NA 146 mmol/L (135-145)
[2024-12-31 07:21] LABS: POTASSIUM,K 2.8 mmol/L (3.5-5.3)
[2024-12-31] MEDS: Potassium Chloride 20 MEQ in Premix Bag 1 BAG IV SCH (08:56)
[2024-12-31] MEDS: Cholecalciferol (Vitamin D3) 25 MCG Tab PO SCH (20:04)
[2024-12-31] MEDS: Carboxymethylcellulose Sodium 0.5% Ophth Soln 15 ML Bottle EYEBOTH SCH (20:08)
[2024-12-31] MEDS: Timolol Maleate 0.5% Ophth Soln 5 ML Bottle EYEBOTH SCH (20:10)
[2025-01-01 06:40] LABS: BASOPHILS ABSOLUTE AUTO 0.1 x10-3/uL (0.0-0.3); BASOPHILS PERCENT AUTO 0.5 % (0.3-3.8); EOSINOPHILS ABSOLUTE AUTO 0.0 x10-3/uL (0.0-0.6); EOSINOPHILS PERCENT AUTO 0.4 % (0.1-6.8); LYMPHOCYTES ABSOLUTE AUTO 1.7 x10-3/uL (0.5-4.5); LYMPHOCYTES PERCENT AUTO 13.8 % (15.8-45.3); MEAN PLATELET VOLUME 7.9 fL (6.7-11.0); MONOCYTES ABSOLUTE AUTO 0.6 x10-3/uL (0.0-1.2); MONOCYTES PERCENT AUTO 4.9 % (5.5-15.2); NEUTROPHILS ABSOLUTE AUTO 9.8 x10-3/uL (1.7-6.9); NEUTROPHILS PERCENT AUTO 80.4 % (40.3-71.8); PLATELET COUNT,PLT 223 x10(3)uL (117-477); RED BLOOD CELL COUNT 4.40 x10(6)uL (3.90-5.90); RED CELL DISTRIBUTION WIDTH 15.2 % (12.4-15.0); WHITE BLOOD CELL COUNT,WBC 12.2 x10-3/uL (3.2-10.1)
[2025-01-01 06:54] LABS: A/G RATIO 0.7; ALANINE AMINOTRANSFERASE,ALT 24 U/L (12-36); ASPARTATE AMNIOTRANSFERASE,AST 21 IU/L (5-25); BILIRUBIN TOTAL 0.6 mg/dL (0.1-1.3); BLOOD UREA NITROGEN,BUN 33 mg/dL (7-18); CARBON DIOXIDE,CO2 31 mmol/L (21-32); CHLORIDE,CL 106 mmol/L (100-110); CREATININE 1.2 mg/dL (0.70-1.30); EST CRCL DRUG DOSING (CG) 42.84 mL/min; ESTIMATED GFR 60 mL/min (>60); GLUCOSE RANDOM 97 mg/dL (80-116); POTASSIUM,K 3.6 mmol/L (3.5-5.3); PROTEIN TOTAL,TP 6.4 g/dL (6.0-8.0); SODIUM,NA 143 mmol/L (135-145)
[2025-01-01] MEDS: Sennosides/Docusate Sodium 50-8.6 MG Tab PO SCH (08:23)
[2025-01-01] MEDS ORDERED: CRANBERRY FRUIT EXTRACT 425 MG PO SCH (09:00)
[2025-01-01 16:25] LABS: STREPTOCOCCUS PNEUMONIAE AG,UR Positive (Negative)
[2025-01-01 23:05] LABS: LEGIONELLA PNEUMOPHILA AG,URN Negative (Negative)
[2025-01-03 06:43] LABS: BASOPHILS ABSOLUTE AUTO 0.0 x10-3/uL (0.0-0.3); BASOPHILS PERCENT AUTO 0.2 % (0.3-3.8); EOSINOPHILS ABSOLUTE AUTO 0.0 x10-3/uL (0.0-0.6); EOSINOPHILS PERCENT AUTO 0.0 % (0.1-6.8); LYMPHOCYTES ABSOLUTE AUTO 1.2 x10-3/uL (0.5-4.5); LYMPHOCYTES PERCENT AUTO 12.0 % (15.8-45.3); MEAN PLATELET VOLUME 8.0 fL (6.7-11.0); MONOCYTES ABSOLUTE AUTO 0.3 x10-3/uL (0.0-1.2); MONOCYTES PERCENT AUTO 3.0 % (5.5-15.2); NEUTROPHILS ABSOLUTE AUTO 8.8 x10-3/uL (1.7-6.9); NEUTROPHILS PERCENT AUTO 84.8 % (40.3-71.8); PLATELET COUNT,PLT 279 x10(3)uL (117-477); RED BLOOD CELL COUNT 4.54 x10(6)uL (3.90-5.90); RED CELL DISTRIBUTION WIDTH 15.0 % (12.4-15.0); WHITE BLOOD CELL COUNT,WBC 10.3 x10-3/uL (3.2-10.1)
[2025-01-03 06:50] LABS: BLOOD UREA NITROGEN,BUN 34 mg/dL (7-18); CARBON DIOXIDE,CO2 30 mmol/L (21-32); CHLORIDE,CL 107 mmol/L (100-110); CREATININE 1.0 mg/dL (0.70-1.30); EST CRCL DRUG DOSING (CG) 51.41 mL/min; ESTIMATED GFR 74 mL/min (>60); GLUCOSE RANDOM 117 mg/dL (80-116); POTASSIUM,K 4.0 mmol/L (3.5-5.3); SODIUM,NA 143 mmol/L (135-145)
== END 2025-01-03 12:05 | disposition home health service (06) | DRG 280 ==
LOC: FB.ED 23:18 → SUPCPDRO 23:18 → FB.MS 23:59
PROVIDERS: ADMIT Family Medicine; ATTEND Family Medicine
DX: I11.0 Hypertensive heart disease with heart failure (principal); I10 Essential (primary) hypertension; I50.43 Acute on chronic combined systolic (congestive) and diastolic (congestive) heart failure; I21.A1 Myocardial infarction type 2; J18.9 Pneumonia, unspecified organism; J96.01 Acute respiratory failure with hypoxia; J44.1 Chronic obstructive pulmonary disease with (acute) exacerbation; J44.0 Chronic obstructive pulmonary disease with (acute) lower respiratory infection; E87.20 Acidosis, unspecified; Z66 Do not resuscitate; E78.00 Pure hypercholesterolemia, unspecified; M81.0 Age-related osteoporosis without current pathological fracture; G30.9 Alzheimer's disease, unspecified; R79.89 Other specified abnormal findings of blood chemistry; F02.B0 Dementia in other diseases classified elsewhere, moderate, without behavioral disturbance, psychotic disturbance, mood disturbance, and anxiety; F01.B0 Vascular dementia, moderate, without behavioral disturbance, psychotic disturbance, mood disturbance, and anxiety; Z98.49 Cataract extraction status, unspecified eye; Z98.890 Other specified postprocedural states; Z79.52 Long term (current) use of systemic steroids; Z79.899 Other long term (current) drug therapy
CPT/HCPCS: 36415; 71045; 80048; 80053; 81001; 83605; 83880; 84132; 84484; 85025; 86140; 87040; 87449; 87637; 87899; 93005; 93010; 94640; 99285; A9270-GY; J0456; J0696; J1271; J1650; J1938; J3480; J7030; J7050; J7512; J8540